=== PATIENT | male | born 1955 | race African-American/Black ===

== ENCOUNTER 2019-09-10 09:36 | Inpatient (IN) | payer OTHER ==
[2019-09-10 10:32] VITALS: BMI 32.2
--- NOTE | 2019-09-10 11:38 | HP ---
COWS - Scale Resting Pulse: 0= DC 80 or Below Sweatin= Chills/Flushing Restless Observation: 1= Difficult to Sit Still Pupil Size: 1= Pupils >than Normal Bone or Joint Aches: 2= Severe Diffuse Aches Runny Nose/ Eye Tearin= Runny Nose/Eyes GI Upset > 30mins: 2= Nausea/Diarrhea Tremor Observation: 2= Slight Tremor Visible Yawning Observation: 1= 1-2x During Session Anxiety or Irritability: 2=Irritable/Anxious Goose Flesh Skin: 0=Smooth Skin COWS Score: 14 CIWA Score - Admission Criteria [facility]ASAS Guidelines: Admission for Medically Managed Detox: Requires at least one of the followin. CIWA greater than 12 2. Seizures within the past 24 hours 3. Delirium tremens within the past 24 hours 4. Hallucinations within the past 24 hours 5. Acute intervention needed for co occurring medical disorder 6. Acute intervention needed for co occurring psychiatric disorder 7. Severe withdrawal that cannot be handled at a lower level of care (continued vomiting, continued diarrhea, abnormal vital signs) requiring intravenous medication and/or fluids 8. Admitting History and Physical - Admission Chief Complaint: i need help to stop using heroin History of Present Illness: this 64 years old male with heroin dependence,seking detox,withdrawal symptom, last detox 2005 in [place], no seizure no syncope old cva with right hemiparesis.using cane for ambulatory aid htn,hypercholesterolemia nicotine plan for rehab after detox History Source: Patient Limitations to Obtaining History: No Limitations - Past Medical History HOME CARE COMPANION: Yes: CVA Cardiovascular: Yes: HTN, Hyperlipdemia Additional Past Medical History: old cva in 2004 - Smoking History Smoking history: Current every day smoker Have you smoked in the past 12 months: Yes Aproximately how many cigarettes per day: 2 - Alcohol/Substance Use Hx Alcohol Use: No History of Substance Use: reports: Heroin - Social History Usual Living Arrangement: Yes: Other (live with brother) Occupation: retired on disabilty History of Recent Travel: No Admission ROS S - HPI Chief Complaint: i need help to stop using heroin Allergies/Adverse Reactions: Allergies Allergy/AdvReac Type Severity Reaction Status Date / Time No Known Allergies Allergy Verified 09/10/19 10:14 History of Present Illness: this 64 years old male with heroin dependence,seeking detox,withdrawal symptom, last detox 2004 htn,hypercholesterolemia old cva with right side weakness in 2005 ambulation with cane plan for rehab after detox low back pain history of sherron overdose 4 times last 1 week ago Exam Limitations: No Limitations - Ebola screening Have you traveled outside of the country in the last 21 days: No Have you had contact with anyone from an Ebola affected area: No Do you have a fever: No - Review of Systems Constitutional: Chills, Loss of Appetite, Malaise, Night Sweats, Changes in sleep, Weakness EENT: reports: Tearing, Nose Congestion Respiratory: reports: No Symptoms reported Cardiac: reports: No Symptoms Reported GI: reports: Nausea, Poor Appetite, Abdominal cramping : reports: No Symptoms Reported Musculoskeletal: reports: Back Pain, Muscle Pain, Other (right hemiparesis post cva) Integumentary: reports: Dryness Endocrine: reports: No Symptoms Reported Hematology: reports: No Symptoms Reported Psychiatric: reports: No Sypmtoms Reported, Judgement Intact, Mood/Affect Appropiate, Orientated x3 Other Systems: Reviewed and Negative Patient History - Patient Medical History Hx Anemia: No Hx Asthma: No Hx Chronic Obstructive Pulmonary Disease (COPD): No Hx Cancer: No Hx Cardiac Disorders: No Hx Congestive Heart Failure: No Hx Hypertension: Yes (on med) Hx Hypercholesterolemia: Yes (on med) Hx Pacemaker: No HX Cerebrovascular Accident: No Hx Seizures: No Hx Dementia: No Hx Diabetes: No Hx Gastrointestinal Disorders: No Hx Liver Disease: No Hx Genitourinary Disorders: No Hx Sexually Transmitted Disorders: No Hx Renal Disease (ESRD): No Hx Thyroid Disease: No Hx Human Immunodeficiency Virus (HIV): No (last 1999) Hx Hepatitis C: No Hx Depression: No Hx Suicide Attempt: No Hx Bipolar Disorder: No Hx Schizophrenia: No Other Medical History: no sucidal,no homicidal,old cva in 2005 - Patient Surgical History Past Surgical History: No - PPD History Previous Implant?: Yes Documented Results: Negative w/o proof Implanted On Prior [facility] Admission?: No PPD to be Administered?: Yes - Smoking Cessation Smoking history: Current every day smoker Have you smoked in the past 12 months: Yes Aproximately how many cigarettes per day: 2 Cigars Per Day: 0 Hx Chewing Tobacco Use: No Initiated information on smoking cessation: Yes 'Breaking Loose' booklet given: 09/10/19 - Substance & Tx. History Hx Alcohol Use: No Hx Substance Use: Yes Substance Use Type: Heroin Hx Substance Use Treatment: Yes (2005 in [place]) - Substances abused Heroin Substance route: Inhalation Frequency: Daily Amount used: 2 bags to 10 bags Age of first use: 41 Date of last use: 09/09/19 Admission Physical Exam [facility] - Vital Signs Vital Signs: Vital Signs - 24 hr 09/10/19 10:29 Temperature 98.1 F Pulse Rate 71 Respiratory 18 Rate Blood Pressure 149/90 - Physical General Appearance: Yes: Moderate Distress, Tremorous, Irritable, Sweating, Anxious HEENTM: Yes: Normal ENT Inspection, LAZARA, Pharynx Normal Respiratory: Yes: Lungs Clear, Normal Breath Sounds, No Respiratory Distress Neck: Yes: Within Normal Limits, Supple, Trachea in good position Breast: Yes: Within Normal Limits Cardiology: Yes: Within Normal Limits, Regular Rhythm, Regular Rate, S1, S2 Abdominal: Yes: Within Normal Limits, Normal Bowel Sounds, Non Tender, Flat, Soft Genitourinary: Yes: Within Normal Limits Back: Yes: Muscle Spasm Musculoskeletal: Yes: Back pain, Muscle Pain Extremities: Yes: Tremors Neurological: Yes: tax technician II-XII NML intact, Fully Oriented, Alert, Other (right hemiparesis) Integumentary: Yes: Dry Lymphatic: Yes: Within Normal Limits - Diagnostic (1) Opioid dependence with withdrawal Current Visit: Yes Status: Acute (2) Hypertension Current Visit: Yes Status: Acute (3) Hypercholesterolemia Current Visit: Yes Status: Acute (4) CVA, old, hemiparesis Current Visit: Yes Status: Acute (5) Use of cane as ambulatory aid Current Visit: Yes Status: Acute Cleared for Admission [facility] - Detox or Rehab [facility] Level of Care: Medically Managed Detox Regimen/Protocol: Methadone Breathalyzer - Breathalyzer Breathalyzer: 0.011 Urine Drug Screen - Test Device Lot number: [id number] Expiration date: 06/06/21 - Control Is test valid?: Yes - Results Drug screen NEGATIVE: No Urine drug screen results: FEN-Fentanyl, MOP-Opiates Inpatient Rehab Admission - Rehab Decision to Admit Inpatient rehab admission?: No
[2019-09-10] MEDS ORDERED: METHADONE HCL 10 MG TABLET (FOR DETOX USE ONLY) PO ONE (12:01)
[2019-09-10] MEDS ORDERED: MELATONIN 5 MG TABLETS PO PRN (12:01)
[2019-09-10] MEDS ORDERED: MAGNESIUM HYDROX 2400MG/30ML ORAL SUSPENSION 30 ML CUP PO PRN (12:01)
[2019-09-10] MEDS ORDERED: METHOCARBAMOL 500 MG TABLET PO PRN (12:01)
[2019-09-10] MEDS ORDERED: ACETAMINOPHEN 325 MG TABLET (FP) PO PRN ×2 (12:01)
[2019-09-10] MEDS ORDERED: MAG HYDROX/AL HYDROX/SIMETH 30 ML UNIT-DOSE CUP PO PRN (12:01)
[2019-09-10] MEDS ORDERED: hydrOXYzine PAMOATE 25 MG CAPSULE (FP) PO PRN (12:01)
[2019-09-10] MEDS ORDERED: cloNIDine HCL 0.1 MG TABLET PO PRN (12:01)
[2019-09-10] MEDS ORDERED: BISMUTH SUBSALICYLATE 524 MG/30 ML UD PO PRN (12:01)
[2019-09-10] MEDS ORDERED: MENTHOL/PHENOL 1 EACH UD MM PRN (12:01)
[2019-09-10] MEDS ORDERED: IBUPROFEN 400 MG TABLET (FP) PO PRN (12:01)
[2019-09-10] MEDS ORDERED: MAGNESIUM CITRATE 300 ML BOTTLE PO PRN (12:01)
[2019-09-10] MEDS: ATORVASTATIN CA 10 MG TABLET (FP) PO SCH (22:44)
[2019-09-10] MEDS: THIAMINE HCL 100 MG TABLET (FP) PO SCH (22:44)
--- NOTE | 2019-09-11 09:48 | PN ---
[facility] COWS - Scale Resting Pulse: 0= [place] 80 or Below Sweatin= Chills/Flushing Restless Observation: 0= Sits Still Pupil Size: 1= Pupils >than Normal Bone or Joint Aches: 2= Severe Diffuse Aches Runny Nose/ Eye Tearin= None GI Upset > 30mins: 1= Stomach Cramp Tremor Observation of Outstretched Hands: 2= Slight Tremor Visible Yawning Observation: 0= None Anxiety or Irritability: 2=Irritable/Anxious Goose Flesh Skin: 3=Piloerection COWS Score: 12 [facility] Progress Note (SOAP) Subjective: 64 years old male admitted on 09/10/19 for opiate withdrawal sx management treating with methadone detox regimen ambulating on hallway without cane strong recommend use cane as ambulation aid and change position slowly Objective: 09/11/19 09:47 Vital Signs Temperature 97.1 F L 09/11/19 09:13 Pulse Rate 79 09/11/19 09:13 Respiratory Rate 18 09/11/19 09:13 Blood Pressure 131/83 09/11/19 09:13 O2 Sat by Pulse Oximetry (%) 09/11/19 09:47 lab pending Assessment: 09/11/19 09:47 opiate withdrawal Plan: methadone regimen
[2019-09-11] MEDS ORDERED: METHADONE HCL 5 MG TABLET (FOR DETOX USE ONLY) PO ONE (10:00)
[2019-09-11] MEDS: PRENATAL VITAMINS W/ FOLIC ACID TABLET (FP) PO SCH (10:10)
[2019-09-11] MEDS: amLODIPine BESYLATE 5 MG TABLET (FP) PO SCH (10:10)
[2019-09-11] MEDS: guaiFENesin 600 MG TABLET.ER (FP) PO SCH ×2 (13:36→22:05)
[2019-09-11 13:37] LABS: HEMATOCRIT 45.4 % (35.4-49); MCH 29.5 pg (25.7-33.7); MEAN CELL VOLUME 89.5 fl (80-96); MEAN PLT VOLUME 9.4 fl (7.5-11.1); PLATELET COUNT 259 K/MM3 (134-434); RBC 5.07 M/mm3 (4.00-5.60); RDW 16.5 % (11.9-15.9); WHITE BLOOD COUNT 4.1 K/mm3 (4.0-10.0)
[2019-09-11 13:53] LABS: CHOLESTEROL 205 mg/dL (50-200); HDL CHOLESTEROL 39 mg/dL (40-60); LDL CHOLESTEROL (ONLY SJRH) 138 mg/dL (5-100); TRIGLYCERIDES 90 mg/dL (0-150)
[2019-09-11 13:54] LABS: ALBUMIN 3.1 g/dl (3.4-5.0); BILIRUBIN,TOTAL 0.5 mg/dL (0.2-1); BLOOD UREA NITROGEN 12.2 mg/dL (7-18); CALCIUM 8.5 mg/dL (8.5-10.1); CREATININE 0.9 mg/dL (0.55-1.3); TOT PROT 6.2 g/dl (6.4-8.2)
--- NOTE | 2019-09-11 17:09 | EKG ---
Test Reason : Blood Pressure : / mmHG Vent. Rate : 077 BPM Atrial Rate : 077 BPM P-R Int : 130 ms QRS Dur : 132 ms QT Int : 398 ms P-R-T Axes : 074 -54 022 degrees QTc Int : 450 ms NORMAL SINUS RHYTHM POSSIBLE LEFT ATRIAL ENLARGEMENT RIGHT BUNDLE BRANCH BLOCK LEFT ANTERIOR FASCICULAR BLOCK BIFASCICULAR BLOCK LEFT VENTRICULAR HYPERTROPHY ABNORMAL ECG NO PREVIOUS ECGS AVAILABLE Confirmed by SALENA CROOK, WILLIAN ([id number]) on 09/11/2019 5:08:54 PM Referred By: Confirmed By:WILLIAN MARTINO MD
[2019-09-11] MEDS: THIAMINE HCL 100 MG TABLET (FP) PO SCH (22:05)
[2019-09-11] MEDS: ATORVASTATIN CA 10 MG TABLET (FP) PO SCH (22:05)
[2019-09-12] MEDS ORDERED: METHADONE HCL 10 MG TABLET (FOR DETOX USE ONLY) PO ONE (10:00)
[2019-09-12] MEDS: amLODIPine BESYLATE 5 MG TABLET (FP) PO SCH (10:16)
[2019-09-12] MEDS: PRENATAL VITAMINS W/ FOLIC ACID TABLET (FP) PO SCH (10:16)
[2019-09-12] MEDS: guaiFENesin 600 MG TABLET.ER (FP) PO SCH ×2 (10:16→22:06)
--- NOTE | 2019-09-12 11:37 | PN ---
[facility] COWS - Scale Resting Pulse: 0= [place] 80 or Below Sweatin= Chills/Flushing Restless Observation: 0= Sits Still Pupil Size: 1= Pupils >than Normal Bone or Joint Aches: 1= Mild Discomfort Runny Nose/ Eye Tearin= Nasal Congestion GI Upset > 30mins: 1= Stomach Cramp Tremor Observation of Outstretched Hands: 1= Tremor [place], Not Seen Yawning Observation: 0= None Anxiety or Irritability: 1=Feels Anxious/Irritable Goose Flesh Skin: 0=Smooth Skin COWS Score: 7 BHS Progress Note (SOAP) Subjective: 64 years old male admitted on 09/10/19 for opiate withdrawal sx management treating with methadone detox regimen doing ok today ate breakfast resting in bed discuss behavior therapy and psychosocial therapy as part of recovery process Objective: 09/12/19 11:36 Vital Signs Temperature 96.6 F L 09/12/19 09:05 Pulse Rate 75 09/12/19 09:05 Respiratory Rate 18 09/12/19 09:05 Blood Pressure 132/65 09/12/19 09:05 O2 Sat by Pulse Oximetry (%) Laboratory Last Values WBC 4.1 K/mm3 (4.0-10.0) 09/11/19 07:30 RBC 5.07 M/mm3 (4.00-5.60) 09/11/19 07:30 Hgb 15.0 GM/dL (11.7-16.9) 09/11/19 07:30 Hct 45.4 % (35.4-49) 09/11/19 07:30 MCV 89.5 fl (80-96) 09/11/19 07:30 MCH 29.5 pg (25.7-33.7) 09/11/19 07:30 MCHC 33.0 g/dl (32.0-35.9) 09/11/19 07:30 RDW 16.5 % (11.9-15.9) H 09/11/19 07:30 Plt Count 259 K/MM3 (134-434) 09/11/19 07:30 MPV 9.4 fl (7.5-11.1) 09/11/19 07:30 Sodium 141 mmol/L (136-145) 09/11/19 07:30 Potassium 4.0 mmol/L (3.5-5.1) 09/11/19 07:30 Chloride 106 mmol/L (98-107) 09/11/19 07:30 Carbon Dioxide 31 mmol/L (21-32) 09/11/19 07:30 Anion Gap 4 MMOL/L (8-16) L 09/11/19 07:30 BUN 12.2 mg/dL (7-18) 09/11/19 07:30 Creatinine 0.9 mg/dL (0.55-1.3) 09/11/19 07:30 Est GFR (CKD-EPI)AfAm 104.98 09/11/19 07:30 Est GFR (CKD-EPI)NonAf 90.58 09/11/19 07:30 Random Glucose 89 mg/dL (74-106) 09/11/19 07:30 Calcium 8.5 mg/dL (8.5-10.1) 09/11/19 07:30 Total Bilirubin 0.5 mg/dL (0.2-1) 09/11/19 07:30 AST 10 U/L (15-37) L 09/11/19 07:30 ALT 17 U/L (13-61) 09/11/19 07:30 Alkaline Phosphatase 78 U/L (45-117) 09/11/19 07:30 Total Protein 6.2 g/dl (6.4-8.2) L 09/11/19 07:30 Albumin 3.1 g/dl (3.4-5.0) L 09/11/19 07:30 Triglycerides 90 mg/dL (0-150) 09/11/19 07:30 Cholesterol 205 mg/dL (50-200) H 09/11/19 07:30 Total LDL Cholesterol 138 mg/dL (5-100) H 09/11/19 07:30 HDL Cholesterol 39 mg/dL (40-60) L 09/11/19 07:30 RPR Titer Nonreactive (NONREACTIVE) 09/11/19 07:30 HIV 1&2 Antibody Screen Negative 09/11/19 07:30 HIV P24 Antigen Negative 09/11/19 07:30 lab noted Assessment: 09/12/19 11:37 opiate withdrawal Plan: methadone regimen
[2019-09-12] MEDS: ATORVASTATIN CA 10 MG TABLET (FP) PO SCH (22:06)
[2019-09-12] MEDS: THIAMINE HCL 100 MG TABLET (FP) PO SCH (22:06)
[2019-09-13] MEDS ORDERED: METHADONE HCL 5 MG TABLET (FOR DETOX USE ONLY) PO ONE (06:00)
[2019-09-13 09:10] VITALS: BP 146/81; PULSE 70; TEMP 98.6
--- NOTE | 2019-09-13 10:36 | DS ---
[facility] Detox Discharge Summary Admission Date: 09/10/19 Discharge Date: 09/13/19 - History Present History: Opioid Dependence Additional Comments: 64 years old male admitted on 09/10/19 for opiate withdrawal sx management treated with methadone detox regimen patient tolerated well alert oriented x 3 history of hypertension hyper lipidemia and cva in 2004 ambulating with cane steady gait cardiac s1s2 regular rate rhythm ekg indicates possible left atrial enlargement denies chest pain no shortness of breath respiratory clear lung bilaterally on auscultation health teaching on smoking cessation and risks of asthma episodes skin warm and dry Pertinent Past History: patient agrees returning to [facility] primary health service provider for bp and lipid monitoring - Physical Exam Results Vital Signs: Vital Signs Temperature 98.6 F 09/13/19 09:10 Pulse Rate 70 09/13/19 09:10 Respiratory Rate 18 09/13/19 09:10 Blood Pressure 146/81 09/13/19 09:10 O2 Sat by Pulse Oximetry (%) Pertinent Admission Physical Exam Findings: opiate withdrawal Laboratory Last Values WBC 4.1 K/mm3 (4.0-10.0) 09/11/19 07:30 RBC 5.07 M/mm3 (4.00-5.60) 09/11/19 07:30 Hgb 15.0 GM/dL (11.7-16.9) 09/11/19 07:30 Hct 45.4 % (35.4-49) 09/11/19 07:30 MCV 89.5 fl (80-96) 09/11/19 07:30 MCH 29.5 pg (25.7-33.7) 09/11/19 07:30 MCHC 33.0 g/dl (32.0-35.9) 09/11/19 07:30 RDW 16.5 % (11.9-15.9) H 09/11/19 07:30 Plt Count 259 K/MM3 (134-434) 09/11/19 07:30 MPV 9.4 fl (7.5-11.1) 09/11/19 07:30 Sodium 141 mmol/L (136-145) 09/11/19 07:30 Potassium 4.0 mmol/L (3.5-5.1) 09/11/19 07:30 Chloride 106 mmol/L (98-107) 09/11/19 07:30 Carbon Dioxide 31 mmol/L (21-32) 09/11/19 07:30 Anion Gap 4 MMOL/L (8-16) L 09/11/19 07:30 BUN 12.2 mg/dL (7-18) 09/11/19 07:30 Creatinine 0.9 mg/dL (0.55-1.3) 09/11/19 07:30 Est GFR (CKD-EPI)AfAm 104.98 09/11/19 07:30 Est GFR (CKD-EPI)NonAf 90.58 09/11/19 07:30 Random Glucose 89 mg/dL (74-106) 09/11/19 07:30 Calcium 8.5 mg/dL (8.5-10.1) 09/11/19 07:30 Total Bilirubin 0.5 mg/dL (0.2-1) 09/11/19 07:30 AST 10 U/L (15-37) L 09/11/19 07:30 ALT 17 U/L (13-61) 09/11/19 07:30 Alkaline Phosphatase 78 U/L (45-117) 09/11/19 07:30 Total Protein 6.2 g/dl (6.4-8.2) L 09/11/19 07:30 Albumin 3.1 g/dl (3.4-5.0) L 09/11/19 07:30 Triglycerides 90 mg/dL (0-150) 09/11/19 07:30 Cholesterol 205 mg/dL (50-200) H 09/11/19 07:30 Total LDL Cholesterol 138 mg/dL (5-100) H 09/11/19 07:30 HDL Cholesterol 39 mg/dL (40-60) L 09/11/19 07:30 RPR Titer Nonreactive (NONREACTIVE) 09/11/19 07:30 HIV 1&2 Antibody Screen Negative 09/11/19 07:30 HIV P24 Antigen Negative 09/11/19 07:30 lab noted Vital Signs Temperature 98.6 F 09/13/19 09:10 Pulse Rate 70 09/13/19 09:10 Respiratory Rate 18 09/13/19 09:10 Blood Pressure 146/81 09/13/19 09:10 O2 Sat by Pulse Oximetry (%) - Treatment Hospital Course: Detox Protocol Followed, Detoxed Safely, Responded well, Discharged Condition Good, Rehab Referral Accepted Patient has Accepted a Rehab Referral to: [facility] - Medication Discharge Medications: Ambulatory Orders Amlodipine Besylate 5 mg PO DAILY 09/10/19 Meloxicam 7.5 mg PO DAILY 09/10/19 Pravastatin Sodium 20 mg PO HS 09/10/19 Naloxone HCl [Narcan] 4 mg NS ASDIR PRN #1 spray 09/11/19 - Diagnosis (1) Hypercholesterolemia Status: Chronic (2) Hypertension Status: Chronic Qualifiers: Hypertension type: essential hypertension Qualified Code(s): I10 - Essential (primary) hypertension (3) Opioid dependence with withdrawal Status: Acute (4) Use of cane as ambulatory aid Status: Chronic - AMA Did Patient Leave Against Medical Advice: No COWS (PN) - Opiate Withdrawal Resting Pulse: 0= [place] 80 or Below Sweatin= Chills/Flushing Restless Observation: 0= Sits Still Pupil Size: 0= Normal to Room Light Bone or Joint Aches: 1= Mild Discomfort Runny Nose/ Eye Tearin= None GI Upset > 30mins: 0= None Tremor Observation of Outstretched Hands: 1= Tremor [place], Not Seen Yawning Observation: 0= None Anxiety or Irritability: 1=Feels Anxious/Irritable Goose Flesh Skin: 0=Smooth Skin COWS Score: 4
== END 2019-09-13 10:06 | disposition home or self-care (01) | DRG 897 ==
LOC: YASAS 09:36 → Y3N 11:53
PROVIDERS: ADMIT Allergy & Immunology; ATTEND Allergy & Immunology
PROC: HZ2ZZZZ Detoxification Services for Substance Abuse Treatment (ICD-10-PCS; principal; 2019-09-10)
DX: F11.23 Opioid dependence with withdrawal (principal); I69.351 Hemiplegia and hemiparesis following cerebral infarction affecting right dominant side; F17.210 Nicotine dependence, cigarettes, uncomplicated; I10 Essential (primary) hypertension; E78.00 Pure hypercholesterolemia, unspecified; M54.5 Low back pain; R26.2 Difficulty in walking, not elsewhere classified; Z99.89 Dependence on other enabling machines and devices; Z86.59 Personal history of other mental and behavioral disorders
CPT/HCPCS: 36415; 80053; 80061; 83721; 85027; 86593; 87389; 93005; 93010; J0735